=== PATIENT | female | born 1945 | race Caucasian/White ===

== ENCOUNTER 2020-09-08 14:33 | Outpatient (CLI) | payer MEDICARE, SELFPAY ==
[2020-09-08 15:00] VITALS: O2SAT 90
[2020-09-08 15:05] VITALS: O2SAT 86
[2020-09-08 15:07] VITALS: O2SAT 87
[2020-09-08 15:10] VITALS: O2SAT 91
[2020-09-08 15:20] VITALS: O2SAT 91
--- NOTE | 2020-09-08 15:33 | HOMEO2EVAL ---
Home Oxygen Evaluation RC: Home Oxygen (O2) Evaluation Start: 09/08/20 15:31 Freq: Status: Active Protocol: RPE Activity Type Activity Date Activity User E-Sign Co-Sign Detail Recorded Client Recorded Date Recorded By Document 09/08/20 15:00 [email or web address] [email or web address] 09/08/20 15:33 DAVID Document 09/08/20 15:05 [email or web address] [email or web address] 09/08/20 15:33 DAVID Document 09/08/20 15:07 [email or web address] [email or web address] 09/08/20 15:33 DAVID Document 09/08/20 15:10 [email or web address] [email or web address] 09/08/20 15:33 DAVID Document 09/08/20 15:20 [email or web address] [email or web address] 09/08/20 15:33 DAVID 09/08/20 09/08/20 09/08/20 15:00 15:05 15:07 Home O2 Evaluation Test Phase Resting Exercise Exercise Oxygen Delivery Room Air Room Air Nasal Cannula Oxygen Flow Rate (L/min) 1 Pulse Oximetry (90-100 %) 90 86 L 87 L Ambulation Distance (feet) Home Oxygen Evaluation Comments Treatment Charges O2 Evaluation 09/08/20 09/08/20 15:10 15:20 Home O2 Evaluation Test Phase Exercise Resting Oxygen Delivery Nasal Cannula Room Air Oxygen Flow Rate (L/min) 2 Pulse Oximetry (90-100 %) 91 91 Ambulation Distance (feet) 300 Home Oxygen Evaluation Comments PT REQUIRES 2L WITH ACTIVITY Treatment Charges
--- NOTE | 2020-09-16 14:13 | WPDPFTINT ---
PFT Interpretation PFT Interpretation: This PFT met all criteria for ATS standards and reproducibility FEV/FVC post bronchodilator 87% FEV1 47% or 0.79 liters FVC 38% or 0.91 liters TLC 61% or 2.56 liters RV 61% RV/TLC 41% DLCO 33% when adjusted for alveolar volume but not adjusted for hemoglobin Flow volume loops showed a restrictive pattern Impression: Severe restrictive ventilatory defect with severely reduced diffusion capacity. This pattern is suggestive of interstitial lung disease. Clinical correlation is advised.
== END 2020-09-08 14:34 | disposition home or self-care (01) ==
PROVIDERS: PCP Internal Medicine; Visit Provider Nurse Practitioner
DX: J84.112 Idiopathic pulmonary fibrosis (principal)
CPT/HCPCS: 94060; 94618; 94726; 94729